=== PATIENT | female | born 2000 | race Two or more races ===

== ENCOUNTER 2019-05-19 10:42 | Day surgery (SDC) | payer OTHER ==
[2019-05-14 11:00] LABS: HEMATOCRIT 40.1 % (36.0-47.0); MEAN CORPUSCULAR HEMOGLOBIN 31.3 pg (27.0-33.4); MEAN CORPUSCULAR HGB CONC 34.9 g/dL (32.0-36.0); MEAN CORPUSCULAR VOLUME 90 fl (80-97); PLATELET COUNT 347 10^3/uL (150-450); RED BLOOD COUNT 4.46 10^6/uL (3.72-5.28); RED CELL DISTRIBUTION WIDTH 13.2 % (11.5-14.0); WHITE BLOOD COUNT 4.3 10^3/uL (4.0-10.5)
[~2019-05-19 10:42] MED LIST: CEFAZOLIN SODIUM 1 GM in DEXTROSE 5%-WATER 50 ML IV PRN; LACTATED RINGERS 1000 ML IV PRN
[2019-05-19] MEDS ORDERED: PROPOFOL INJ 200 MG/20 ML VIAL IV ONE ×2 (11:13→12:10)
[2019-05-19] MEDS ORDERED: FENTANYL CITRATE INJ/PF 100 MCG/2 ML AMPUL ONE (11:13)
[2019-05-19] MEDS ORDERED: MIDAZOLAM 2 MG/2 ML INJ ONE (11:13)
[2019-05-19] MEDS ORDERED: DEXAMETHASONE SOD PHOSPHATE INJ 4 MG/1 ML VIAL ONE (11:14)
[2019-05-19] MEDS ORDERED: KETOROLAC TROMETHAMINE 60 MG/2 ML SDV ONE (11:14)
[2019-05-19] MEDS ORDERED: ONDANSETRON HCL INJ/PF 4 MG/2 ML SDV ONE (11:14)
[2019-05-19] MEDS ORDERED: MEPERIDINE HCL/PF INJ 25 MG/1 ML DISP.SYRIN IV PRN (11:58)
[2019-05-19] MEDS ORDERED: PROMETHAZINE HCL INJ 25 MG/1 ML VIAL IV PRN (11:58)
[2019-05-19] MEDS ORDERED: OXYCODONE-ACETAMINOPHEN 5-325 MG TABLET PO PRN ×3 (11:58→13:37)
[2019-05-19] MEDS ORDERED: ONDANSETRON HCL INJ/PF 4 MG/2 ML SDV IV PRN (11:58)
[2019-05-19] MEDS ORDERED: DIPHENHYDRAMINE HCL 50 MG/ML VIAL IV PRN (11:58)
[2019-05-19] MEDS ORDERED: MORPHINE SULFATE 10 MG/ML INJ IV PRN (11:58)
[2019-05-19] MEDS ORDERED: FENTANYL CITRATE INJ/PF 100 MCG/2 ML AMPUL IV PRN ×3 (11:58)
[2019-05-19] MEDS ORDERED: BUPIVACAINE HCL 0.25 % INJ/PF (2.5 MG/1 ML) 30 ML VIAL ONE (12:19)
[2019-05-19] MEDS ORDERED: LIDOCAINE 1%/EPINEPHRINE INJ 20 ML VIAL ONE (12:58)
[2019-05-19] MEDS ORDERED: LIDOCAINE 1%/EPINEPHRINE INJ 20 ML VIAL INJ ONE (13:11)
--- NOTE | 2019-05-19 13:37 | Discharge Summary ---
Discharge Summary (SDC) - Discharge Final Diagnosis: Left breast mass Date of Surgery: 05/19/19 Discharge Date: 05/19/19 Condition: Good Treatment or Instructions: WOUND CARE: 1) You may shower in 24 hours. Do not scrub incision site. Leave skin glue intact. You may cover the incision with gauze and tape if it is more comfortable. 2) Wear supportive bra. PAIN MANAGEMENT: 1) You may take Toradol 10mg one pill by mouth every six hours as needed for pain. Do not take additional NSAIDs with the Toradol. You may take Tylenol. FOLLOW UP: 1) You may follow up at [facility] in [address] Hatch. Call clinic sooner with any questions/concerns. Prescriptions: Ketorolac Tromethamine [Toradol 10 mg Tablet] 10 mg PO Q6HP PRN #20 tablet PRN Reason: Referrals: ADRIANA TADEO PA-C [Primary Care Provider] - Discharge Diet: As Tolerated Discharge Activity: Activity As Tolerated, Balance Activity w/Rest Report the Following to Your Physician Immediately: Increase in Pain, Fever over 101 Degrees, Unusual Bleeding, Redness, Swelling, Warmth, Increased Soreness, Drainage-Foul Smelling
--- NOTE | 2019-05-19 13:39 | Operative Report ---
Operative Report DATE OF SURGERY: 05/19/19 PREOPERATIVE DIAGNOSIS: Fibroadenoma left breast POSTOPERATIVE DIAGNOSIS: Same OPERATION: Ultrasound directed open excisional biopsy left breast fibroadenoma SURGEON: REJI ARCINIEGA MANAGER SHELL: FARHEEN BARROS ANESTHESIA: LMAC TISSUE REMOVED OR ALTERED: Fibroadenoma left breast COMPLICATIONS: None ESTIMATED BLOOD LOSS: scant INTRAOPERATIVE FINDINGS: See below PROCEDURE: Patient was seen in preop holding area and the left breast marked. She was then taken the main operating where LMAC anesthesia was induced. Left arm was abducted, left breast and axilla prepped draped sterile fashion. Surgical plan surgical timeout were conducted. The skin overlying the palpable mass was Clarisse x1% plain lidocaine. Approximately 2-1/2 cm incision was made with a #10 blade. Using ultrasound as a guide, real-time, the underlying mass was removed. This is a lobulated approximately 2-1/2cm soft tissue mass. The specimen was bivalved on the back table and confirmed to be consistent with a fibroadenoma. It was sent to pathology for permanent analysis The wound was checked for any bleeding and there was none. Hemostasis was achieved. Sponge and needle counts are correct. Wound closed with 303 0 Vicryl, benzoin and Steri-Strips. The physician design assistant, Ms. Banks, provided assistance during this case by: Assisting with retracting tissue, instillation of local anesthesia and closure of skin incisions.
[2019-05-19 16:13] VITALS: BP 107/71
== END 2019-05-19 15:35 | disposition home or self-care (01) ==
LOC: OROUT 10:42
PROVIDERS: ATTEND Surgery
DX: D24.2 Benign neoplasm of left breast (principal); Z80.3 Family history of malignant neoplasm of breast; J45.909 Unspecified asthma, uncomplicated; Z79.51 Long term (current) use of inhaled steroids
CPT/HCPCS: 36415; 85027; 81025; 88305 ×2; 19120; J2250; J0690; J1100; J1885; J3010; J3490; J2405; J7060; J2704; 400